=== PATIENT | female | born 1990 | race Two or more races ===

== ENCOUNTER 2022-05-09 03:53 | Emergency (ER) | payer MEDICAID, OTHER ==
[~2022-05-09] VITALS: Ht 167.6 cm; Wt 68.0 kg
[2022-05-09] MEDS ORDERED: LORAZEPAM INJ 2 MG/ML VIAL IV ONE (04:30)
[2022-05-09] MEDS ORDERED: LORAZEPAM INJ 2 MG/ML VIAL ONE (04:31)
--- NOTE | 2022-05-09 04:31 | NUR ---
PT BIBLAPD ON A HOLD DUE TO C/O SI. PER PT DENIES SI. PLACED IN BED 14. ER AT BEDSIDE FOR EVAL.
[2022-05-09 04:59] LABS: BILIRUBIN,URINE NEGATIVE (NEGATIVE); COLOR,URINE OTHER (YELLOW); LEUKOCYTE ESTERASE ,URINE TRACE (NEGATIVE); NITRITE, URINE NEGATIVE (NEGATIVE); PROTEIN,URINE NEGATIVE (NEGATIVE); UGLUCOSE NEGATIVE (NEGATIVE); UROBILINOGEN,URINE 0.2 EU/dL (0.2)
[2022-05-09 05:04] LABS: BASOPHILS # (AUTO) 0.1 K/uL (0.0-0.2); BASOPHILS % (AUTO) 0.8 % (0.0-2.0); EOSINOPHILS % (AUTO) 0.4 % (0.0-6.0); HEMATOCRIT 42 % (33-45); LYMPHOCYTES # (AUTO) 2.9 K/uL (0.8-4.8); LYMPHOCYTES % (AUTO) 32.3 % (20.0-44.0); MEAN CORPUSCULAR HGB CONC 34 g/dl (31.0-36.0); MEAN CORPUSCULAR VOLUME 94 fL (82-100); MONOCYTES # (AUTO) 0.6 K/uL (0.1-1.30); MONOCYTES % (AUTO) 6.4 % (2.0-12.0); NEUTROPHILS # (AUTO) 5.3 K/uL (1.8-8.9); NEUTROPHILS % (AUTO) 60.1 % (43.0-81.0); PLATELET COUNT (AUTO) 552 K/uL (150-450); RED BLOOD CELL COUNT(AUTO) 4.44 MIL/uL (4.0-5.2); WHITE BLOOD COUNT (AUTO) 8.9 K/uL (4.3-11.0)
[2022-05-09 05:17] LABS: BACTERIA,URINE Few /HPF (None Seen); RBC,URINE 0-2 /HPF (0-2); SQUAMOUS EPITHELIAL CELL,UR Few /HPF (None Seen)
[2022-05-09 05:22] LABS: ALBUMIN 3.7 g/dL (3.4-5.0); BILIRUBIN,DIRECT 0.1 mg/dL (0.0-0.2); BILIRUBIN,TOTAL 0.3 mg/dL (0.2-1.0); CALCIUM, SERUM 8.7 mg/dL (8.5-10.1); CREATININE 0.9 mg/dL (0.6-1.3); POTASSIUM 3.7 mmol/L (3.5-5.1); TOTAL PROTEIN, SERUM 7.4 g/dL (6.4-8.2)
--- NOTE | 2022-05-09 06:18 | NUR ---
PT RESTING COMFORTABLY.
--- NOTE | 2022-05-09 07:54 | NUR ---
[employer] CALLED FOR PSYCH EVAL.
--- NOTE | 2022-05-09 10:23 | NUR ---
PT SEEN AND REEVALUATED BY DEBT COUNSELOR,[place]. DOES NOT MEET 5150 HOLD CRITERIA. HOLD BROKEN. MEDICALLY CLEARED BY DR GREEN. WAS OFFERED BREAKFAST TRAY, DECLINED.DISCHARGED FROM ED IN STABLE CONDITION.
[2022-05-09 10:26] VITALS: BP 132/86
== END 2022-05-09 10:26 | disposition home or self-care (01) ==
LOC: ER 03:55
DX: R45.851 Suicidal ideations (principal); F19.10 Other psychoactive substance abuse, uncomplicated; F15.10 Other stimulant abuse, uncomplicated; F10.129 Alcohol abuse with intoxication, unspecified; Z20.822 Contact with and (suspected) exposure to COVID-19
CPT/HCPCS: 99285; 96372; 85025; 80048; 80076; 81001; 36415; 87426; 80143; 80320; 80307; J2060; C9803; G0480